=== PATIENT | female | born 1995 | race Hispanic/Latino ===

== ENCOUNTER 2023-08-23 06:28 | Emergency (ER) | payer OTHER ==
[~2023-08-23] VITALS: Ht 172.7 cm; Wt 81.6 kg
[2023-08-23] MEDS ORDERED: SODIUM CHLORIDE 0.9% 1,000 ML IV ONE (07:00)
[2023-08-23] MEDS ORDERED: LACTATED RINGER'S 1,000 ML IV ONE (07:00)
[2023-08-23] MEDS ORDERED: ondansetron HCL 4 MG/2 ML VIAL IV ONE (07:00)
[2023-08-23 07:06] LABS: BASOPHILS 0.2 % (0-2); EOSINOPHILS 0.4 % (0-6); HEMOGLOBIN 13.4 g/dL (12.0-18.0); LYMPHOCYTES 11.5 % (24-44); MCH 28.7 (27-36); MCHC 33.4 g/dl (30-36); MCV 85.9 fl (81-99); MONOCYTES 6.4 % (0-12); NEUTROPHILS 81.5 % (39-80); PLATELET COUNT 310 K/uL (140-440); RBC 4.65 M/ul (4.3-5.7); RDW 13.5 (10.5-15.0)
[2023-08-23 07:20] LABS: PROTIME 12.8 Sec (11.2-14.2)
[2023-08-23 07:30] LABS: ALBUMIN 3.8 g/dL (3.4-5.0); ALBUMIN/GLOBULIN RATIO 0.73 (1.1-2.4); ANION GAP 12.4 (7-21); BILIRUBIN, TOTAL 0.4 ng/dL (0.2-1.0); BUN/CREATININE RATIO 9.89 (6.0-28.6); CALCIUM 9.3 mg/dL (8.5-10.1); CREATININE, SERUM 0.91 mg/dL (0.55-1.02); POTASSIUM 3.4 mmol/L (3.5-5.1)
[2023-08-23 07:48] LABS: INFLUENZA B NAA NEGATIVE (NEGATIVE); RESPIRATORY SYNCYTIAL VIR NAA NEGATIVE (NEGATIVE)
[2023-08-23 08:17] LABS: BILIRUBIN, URINE NEGATIVE (negative); BLOOD/HGB, URINE NEGATIVE (Negative); KETONE, URINE NEGATIVE (Negative); LEUK ESTERASE, URINE MODERATE (negative); NITRITE, URINE NEGATIVE (negative)
[2023-08-23] MEDS ORDERED: ONDANSETRON ODT8 MG PO (08:18)
[2023-08-23 08:28] LABS: BACTERIA, URINE RARE /hpf (negative); CASTS, URINE NONE SEEN \\lpf; COLLECTION TYPE, URINE CLEAN CATCH; CRYSTALS, URINE NONE SEEN (0-1+); EPITHELIAL CELLS, URINE SQUAMOUS 3+ /lpf (0-1+); RED BLOOD CELLS, URINE 0-1 /hpf (0-5); REFLEX CULTURE, URINE No (No)
[2023-08-23 08:46] VITALS: BP 119/88
== END 2023-08-23 08:45 | disposition home or self-care (01) ==
LOC: ED 06:28
PROVIDERS: Family Medicine
DX: B34.9 Viral infection, unspecified (principal); D72.829 Elevated white blood cell count, unspecified
CPT/HCPCS: 36415; 71045; 80053; 81001; 83605; 85025; 85610; 87502; 87651; 96374; 99283-25; J2405; J7121; U0002